=== PATIENT | male | born 1965 | race Caucasian/White ===

== ENCOUNTER 2020-12-29 06:24 | Observation (INO) ==
[~2020-12-29 06:24] MED LIST: Buffered Lidocaine 1% SYRIN 1 ml INTRADERM ONE; Lactated Ringers 1000 ml BAG 1,000 ML IV SCH
[2020-12-29] MEDS ORDERED: Midazolam 2 mg/2 ml VIAL 1 mg/ml 2 ml VIAL (2 mg) ONE (07:06)
[2020-12-29] MEDS ORDERED: Lidocaine 2% PF 5 ML VIAL ONE (07:06)
[2020-12-29] MEDS ORDERED: ceFAZolin 2 GM PREMIX 2 GM/50 ML BAG ONE (07:07)
[2020-12-29] MEDS ORDERED: ceFAZolin 1 GM ADVAN 1 GM ADDV.VIAL IVPB ONE (07:07)
[2020-12-29] MEDS ORDERED: Propofol 10 mg/ml 100 ML BTL 100 ML ONE ×2 (07:08→10:00)
[2020-12-29] MEDS ORDERED: Phenylephrine 40 mcg/mL 10mL (400mcg) SYRINGE ONE ×2 (09:01→09:10)
[2020-12-29] MEDS ORDERED: Labetalol IV 5 MG/ML 20 ml VIAL ONE (10:07)
[2020-12-29] MEDS ORDERED: Metoprolol Tartrate 5 mg VIAL 5 ml VIAL (1 mg/ml) ONE (10:08)
[2020-12-29] MEDS ORDERED: Sodium Chloride 0.9% 10 ML ONE (10:27)
[2020-12-29] MEDS ORDERED: HYDROmorphone 1 MG/1 ML SYRINGE ONE (10:36)
[2020-12-29] MEDS ORDERED: Propofol 10 MG/ML 20 ML BTL ONE ×2 (10:39→10:55)
[2020-12-29] MEDS ORDERED: ROPIVACAINE 5 MG/ML 30 ML BTL (0.5%) ONE (10:58)
[2020-12-29] MEDS ORDERED: diPHENhydraMINE 25 mg TAB PO PRN (11:20)
[2020-12-29] MEDS ORDERED: Ondansetron 4 mg VIAL 2 MG/ML 2 ml VIAL IV PRN (11:20)
[2020-12-29] MEDS ORDERED: Ondansetron ODT 4 mg TAB 4 MG TAB PO PRN (11:20)
[2020-12-29] MEDS ORDERED: Magnesium Hydroxide LIQ 30 ML UDC PO PRN (11:20)
[2020-12-29] MEDS ORDERED: Morphine 2 MG/ML SYRINGE IV PRN (11:20)
[2020-12-29] MEDS ORDERED: Lactulose 30 ml UDC PO PRN (11:20)
[2020-12-29] MEDS ORDERED: diPHENhydraMINE IV 50 MG/ML 1 ml VIAL (BENADRYL) IV PRN (11:20)
[2020-12-29] MEDS: Lactated Ringers 1000 ml BAG 1,000 ML IV SCH (12:15)
[2020-12-29] MEDS: ceFAZolin 1 GM ADVAN 1 GM in NS 0.9% 50 ML 50 ML IVPB SCH (17:16)
[2020-12-29] MEDS: Magnesium Hydroxide LIQ 30 ML UDC PO SCH (22:03)
[2020-12-30] MEDS: ceFAZolin 1 GM ADVAN 1 GM in NS 0.9% 50 ML 50 ML IVPB SCH ×2 (01:30→07:51)
[2020-12-30] MEDS: Lactated Ringers 1000 ml BAG 1,000 ML IV SCH (02:22)
[2020-12-30] MEDS: Magnesium Hydroxide LIQ 30 ML UDC PO SCH (07:51)
[2020-12-30 08:56] LABS: Hematocrit 34 % (42-52); Hemoglobin 11.3 g/dL (14.0-18.0); Mean Platelet Volume 7.7 fL (7.4-10.4); Platelet Count 260 10^3/uL (150-450)
[2020-12-30] MEDS ORDERED: Vitamin THERAPEUTIC TAB PO SCH (09:00)
[2020-12-30 09:11] LABS: Calcium 8.8 mg/dL (8.6-10.3); EGFR African American 105.6 (>60); EGFR Non-African American 87.3 (>60); Potassium 3.9 mmol/L (3.5-5.0)
[2020-12-30 11:19] VITALS: BP 111/60
== END 2020-12-30 15:30 | disposition home or self-care (01) ==
LOC: AA 06:24 → INTOOBSV 06:24 → SSU 11:20
PROVIDERS: ADMIT Orthopaedic Surgery Adult Reconstructive Orthopaedic Surgery; ATTEND Orthopaedic Surgery Adult Reconstructive Orthopaedic Surgery